=== PATIENT | male | born 2000 | race Caucasian/White ===

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

== ENCOUNTER 2020-08-25 22:24 | Emergency (ER) | payer OTHER ==
[2020-08-25 22:36] VITALS: BMI 23.1
[2020-08-25] MEDS ORDERED: SODIUM CHLORIDE 1,000 ML IV STA (22:42)
[2020-08-25] MEDS ORDERED: ACETAMINOPHEN 1000 MG/100 ML VIAL (NON FORMULARY) IVPB ONE (22:42)
[2020-08-25] MEDS ORDERED: ONDANSETRON 4 MG/2 ML VIAL IVPB ONE (22:42)
[2020-08-25] MEDS ORDERED: FAMOTIDINE 20 MG/50 ML IVPB 20 MG/50 ML MG IVPB ONE ×2 (22:42→23:22)
[2020-08-25] MEDS ORDERED: ACETAMINOPHEN INJECTION 100 ML IVPB ONE (23:21)
[2020-08-25] MEDS ORDERED: ONDANSETRON 4 MG/2 ML VIAL ONE (23:22)
[2020-08-25 23:32] LABS: BASO % 0.1 % (0-2.0); HEMATOCRIT 43.4 % (35.4-49); HEMOGLOBIN 14.7 GM/dL (11.7-16.9); LYMPH % 2.5 % (8-40); MCH 30.1 pg (25.7-33.7); MCHC 33.9 g/dl (32.0-35.9); MEAN CELL VOLUME 88.7 fl (80-96); MEAN PLT VOLUME 8.5 fl (7.5-11.1); MONO % 7.7 % (3.8-10.2); NEUT % 89.7 % (42.8-82.8); PLATELET COUNT 224 K/MM3 (134-434); RBC 4.89 M/mm3 (4.00-5.60); RDW 13.6 % (11.9-15.9); WHITE BLOOD COUNT 18.9 K/mm3 (4.0-10.0)
[2020-08-25 23:39] LABS: INR 1.29 (0.83-1.09); PROTHROMBIN TIME (PATIENT) 15.8 SEC (9.7-13.0)
[2020-08-25 23:59] LABS: CALCIUM 9.4 mg/dL (8.5-10.1)
[2020-08-26] LABS: ALBUMIN 4.4 g/dl (3.4-5.0); BLOOD UREA NITROGEN 10.9 mg/dL (7-18)
[2020-08-26 00:03] LABS: CREATININE 0.9 mg/dL (0.55-1.3)
[2020-08-26 00:04] LABS: BILIRUBIN,TOTAL 2.6 mg/dL (0.2-1); TOT PROT 7.8 g/dl (6.4-8.2)
[2020-08-26] MEDS ORDERED: KETOROLAC TROMETHAMINE 15 MG/ML VIAL IVPUSH ONE (00:20)
[2020-08-26] MEDS ORDERED: DEXAMETHASONE SOD PHOSPHATE 10 MG/1 ML VIAL PO ONE (00:20)
[2020-08-26] MEDS ORDERED: PENICILLIN G BENZATHINE 2,400,000 UNIT/4 ML PFS IM ONE (00:21)
[2020-08-26] MEDS ORDERED: DEXAMETHASONE SOD PHOSPHATE 10 MG/1 ML VIAL ONE (01:34)
[2020-08-26] MEDS ORDERED: KETOROLAC TROMETHAMINE 15 MG/ML VIAL ONE (01:35)
[2020-08-26] MEDS ORDERED: PENICILLIN G BENZATHINE 2,400,000 UNIT/4 ML PFS ONE (01:36)
[2020-08-26 02:10] VITALS: BP 118/63; PULSE 82; TEMP 101.4
== END 2020-08-26 02:45 | disposition home or self-care (01) ==
LOC: JER 22:24
PROC: 3E0333Z Introduction of Anti-inflammatory into Peripheral Vein, Percutaneous Approach (ICD-10-PCS; principal; 2020-08-25)
PROC: 3E033GC Introduction of Other Therapeutic Substance into Peripheral Vein, Percutaneous Approach (ICD-10-PCS; 2020-08-25)
PROC: 3E0333Z Introduction of Anti-inflammatory into Peripheral Vein, Percutaneous Approach (ICD-10-PCS; 2020-08-25)
PROC: 3E033GC Introduction of Other Therapeutic Substance into Peripheral Vein, Percutaneous Approach (ICD-10-PCS; 2020-08-25)
PROC: 3E03329 Introduction of Other Anti-infective into Peripheral Vein, Percutaneous Approach (ICD-10-PCS; 2020-08-25)
PROC: 3E0337Z Introduction of Electrolytic and Water Balance Substance into Peripheral Vein, Percutaneous Approach (ICD-10-PCS; 2020-08-25)
DX: J02.0 Streptococcal pharyngitis (principal)
CPT/HCPCS: 36415; 71045-TC-FY; 80053; 83605; 85025; 85610; 85730; 87040; 87804; 87880; 93005; 93010; 99285-25; J0131; J1100

== ENCOUNTER 2021-10-27 14:36 | Emergency (ER) | payer OTHER ==
[2021-10-27 15:16] VITALS: BP 122/66; PULSE 84; RESP 18; TEMP 99.3; BMI 23.1
== END 2021-10-27 19:39 | disposition home or self-care (01) ==
LOC: JER 14:36
DX: J02.9 Acute pharyngitis, unspecified (principal)
CPT/HCPCS: 87651; 99283-25; C9803-CS; U0003; U0005